=== PATIENT | male | born 1955 | race Caucasian/White ===

== ENCOUNTER 2020-06-21 09:00 | Outpatient (CLI) | payer MEDICARE, SELFPAY | END 2020-06-21 09:01 | disposition home or self-care (01) | PROVIDERS: PCP Internal Medicine | DX: Z23 Encounter for immunization (principal) | CPT/HCPCS: 0001A; 91300 ==

== ENCOUNTER 2020-07-12 08:59 | Outpatient (CLI) | payer MEDICARE, SELFPAY | END 2020-07-12 09:00 | disposition home or self-care (01) | LOC: ANHCOVIDVC 08:59 | PROVIDERS: PCP Internal Medicine | DX: Z23 Encounter for immunization (principal) | CPT/HCPCS: 0002A; 91300 ==

== ENCOUNTER 2021-03-20 16:39 | Observation (INO) | payer MEDICARE, MEDICAID, SELFPAY ==
--- NOTE | ~2021-03-20 | XR_ITS ---
EXAMINATION: XR chest 1V portable DATE: 03/20/2021 17:47 INDICATION: Shortness of breath. TECHNIQUE: A single frontal view of the chest was obtained on 2 radiographs. COMPARISON: Chest 2 views 03/31/2017 FINDINGS: There is no pneumonia, pleural effusion, or pneumothorax. The heart size is normal. IMPRESSION: 1. No acute cardiopulmonary disease. Reviewed, dictated and finalized at location A. [employer]ENDER
--- NOTE | 2021-03-20 17:15 | ED.SOB ---
HPI - SOB/Dyspnea General Chief Complaint: Shortness of Breath/Dyspnea Stated Complaint: covid + passing out, throwing up, fever Time Seen by Provider: 03/20/21 17:15 Source: patient Mode of arrival: wheelchair Limitations: no limitations History of Present Illness HPI Narrative: 66-year-old man with a history Crohn's disease on infliximab the comes in today complaining of vomiting, weakness, lightheadedness, muscle aches, fever and cough. His symptoms started 4 days ago but he developed vomiting and weakness today. He took a home test for COVID yesterday and was positive. MD elicited complaint: shortness of breath Related Data Home Medications Medication Instructions Recorded Confirmed cholestyramine (with sugar) 4 g PO DAILY 03/21/19 03/20/21 [Questran] diphenhydramine-acetaminophen 2 tablet PO HS PRN 03/21/19 03/20/21 [Tylenol PM Extra Strength] diphenoxylate-atropine 2.5 1 tablet PO QID PRN 11/29/20 03/20/21 mg-0.025 mg tablet Allergies Allergy/AdvReac Type Severity Reaction Status Date / Time Sulfa (Sulfonamide Allergy Mild abdomen Verified 11/29/20 09:00 Antibiotics) pain Review of Systems Review of Systems: All systems reviewed & are unremarkable except as noted in HPI and below Constitutional: Constitutional: Reports chills, Reports fever(s) and Reports weakness ENT: Reports nasal congestion and Denies sore throat Cardiovascular: Cardiovascular: Denies chest pain and Denies radiating jaw, neck or arm pain Respiratory: Respiratory: Reports cough and Reports dyspnea Gastrointestinal: Gastrointestinal: Reports diarrhea, Reports nausea and Reports vomiting Musculoskeletal: Musculoskeletal: Reports back pain, Reports myalgias, Denies arthralgias and Denies joint swelling Integumentary/Breasts: Skin/Breast: Denies pruritus, Denies erythema and Denies rash Neurologic: Denies vertigo, Reports dizziness, Denies syncope, Reports headache(s), Denies focal weakness and Reports weakness Hematologic/Lymphatic: Hematologic/Lymphatic: Denies easy bleeding and Denies easy bruising Allergic/Immunologic: Allergic/Immunologic: Denies lip swelling and Denies throat swelling PMFSH Past Medical History Medical History (Updated 03/20/21 @ 19:45 by Fam Holm MD) Arthritis Bulging disc Chronic diarrhea Crohn disease DDD (degenerative disc disease) Herniated disc Sacroiliac joint disease Surgical History Surgical History History of bowel resection Family History Family History Mother Family history of lung cancer Patient's mother is Father Patient's father is Heart failure Diabetes mellitus Malignant neoplasm of prostate Sibling Patient's sister is Ovarian cancer Social History Social History Smoking status: Never smoker Second hand tobacco smoke exposure: No Alcohol intake: current Drinks per week: 6 Substance use: current Substance use type: painkillers Gender identity (if verbalized by the patient): Male Spiritual care concerns: No Agree to blood products: Yes Course Vital Signs Vital signs: Vital Signs Temperature 37.0 C 03/20/21 17:34 Pulse Rate 68 03/20/21 17:34 Respiratory Rate 16 03/20/21 17:34 Blood Pressure 143/80 H 03/20/21 17:34 Pulse Oximetry 100 03/20/21 17:34 Temperature 37.0 C 03/20/21 17:34 Pulse Rate 66 03/20/21 18:24 Respiratory Rate 16 03/20/21 18:24 Blood Pressure 148/60 H 03/20/21 18:24 Pulse Oximetry 100 03/20/21 18:24 MDM - SOB/Dyspnea Lab Data Result diagrams: 03/20/21 17:58 03/20/21 17:58 Labs: Lab Results 03/20/21 03/20/21 03/20/21 Range/Units 17:20 17:58 17:58 WBC 2.4 L (4.8-10.8) K/mm3 RBC 4.96 (4.70-6.10) M
--- NOTE | 2021-03-20 17:17 | ECG_ITS ---
Measurements Intervals [place] Rate: 67 P: 16 NC: 142 QRS: 32 QRSD: 107 T: 52 QT: 437 QTc: 465 Interpretive Statements SINUS RHYTHM BASELINE ARTIFACT- III, AVF NORMAL ECG Electronically Signed On 03-20-2021 20:20:01 [employer] by Alexis Urias D.O.
[2021-03-20] MEDS: ONDANSETRON INJ 4 MG/2 ML VIAL IV PUSH ×2 (17:28→20:58)
[2021-03-20] MEDS: SODIUM CHLORIDE 0.9% IV 1,000 ML 999 ML IV CONT (17:28)
[2021-03-20 17:34] VITALS: BP 143/80; PULSE 68; RESP 16; TEMP 37; O2SAT 100
[2021-03-20 17:50] VITALS: PULSE 68
[2021-03-20 18:00] LABS: Influenza A QL RT-PCR Negative (Negative); Influenza B QL RT-PCR Negative (Negative); SARS-CoV-2 RNA PCR Positive (Negative)
[2021-03-20 18:02] LABS: Hematocrit 44.2 % (37.0-46.0); Hemoglobin 14.6 g/dL (12.4-15.3); Mean Corpuscular Hemoglobin 29.4 pg (27.0-31.0); Mean Corpuscular Volume 89.1 fL (78.0-102.0); Mean Platelet Volume 10.3 fl (8.7-11.0); Platelet Count Result 175 K/mm3 (150-420); Red Blood Count 4.96 M/mm3 (4.70-6.10); Red Cell Distribution Width 13.4 % (11.6-14.4); White Blood Count 2.4 K/mm3 (4.8-10.8)
[2021-03-20 18:19] LABS: Partial Thromboplastin Time 29.1 SEC (23.90-30.70); Prothrombin Time 10.9 Seconds (9.50-12.10)
[2021-03-20 18:24] VITALS: BP 148/60; PULSE 66; RESP 16; O2SAT 100
[2021-03-20 18:24] LABS: Alanine Aminotransferase 251 U/L (16-63); Albumin Level 3.5 g/dL (3.4-5.0); Alkaline Phosphatase 245 U/L (46-116); Anion Gap 9 mmol/L (8-16); Aspartate Amino Transferase 145 U/L (15-37); Bilirubin,Total 0.7 mg/dL (0.00-1.00); Blood Urea Nitrogen 13 mg/dL (7-18); Calcium 7.9 mg/dL (8.5-10.1); Carbon Dioxide 27 mmol/L (21-32); Chloride 96 mmol/L (98-108); Estimated CRCL calculation 62 ml/min; Estimated Glomerular Filt Rate > 60; Glucose 133 mg/dL (70-99); Lactic Acid Reflex 2.1 mmol/L (0.4-2.0); Osmolality Calculated 276 mOsm/kg (285-295); Potassium 3.5 mmol/L (3.5-5.1); Sodium 132 mmol/L (136-145); Total Protein 7.4 g/dL (6.4-8.2); Troponin I 4.5 ng/L (0.00-60.4)
[2021-03-20 18:26] LABS: CRP < 0.2 mg/dL (0.0-0.9)
[2021-03-20 18:44] LABS: Band Neutrophils Percent 0 % (0-6); Basophils Percent Manual 0 % (0-1); Eosinophils Percent Manual 0 % (1-6); Lymphocytes Absolute Manual 0.69 K/mm3 (1.1-4.5); Lymphocytes Percent Manual 29 % (18-44); Monocytes Absolute Manual 0.28 K/mm3 (0.1-0.90); Monocytes Percent Manual 12 % (3-9); Neutrophils Absolute Manual 1.41 K/mm3 (1.3-6.7); Neutrophils Percent Manual 59 % (46-73); Platelet Estimate Adequate (Adequate)
[2021-03-20] MEDS: ACETAMINOPHEN 500 MG TABLET 1000 MG PO (19:30)
[2021-03-20] MEDS: SODIUM CHLORIDE 0.9% IV 1,000 ML 200 ML IV CONT (20:59)
[2021-03-20 22:33] LABS: Add Urine Microscopic? YES; Appearance Urine Clear (Clear); Bilirubin Urine Negative (Negative); Blood Urine Negative (Negative); Color Urine Yellow (Yellow); Glucose Urine UA Negative (Negative); Ketones Urine 2+ (Negative); Leukocyte Esterase Ur Negative LEU/UL (Negative); Nitrate Urine Negative (Negative); Protein Urine Trace (Negative); Specific Grav Ur 1.025 (1.010-1.020)
[2021-03-20 22:39] LABS: RBC Urine 0-2 /hpf (0-2); WBC Urine 0-3 /hpf (0-3)
[2021-03-20 22:40] LABS: Bacteria Urine None seen /hpf; Mucus Urine Rare /lpf; Squamous Epithelial Cell Urine None seen /hpf (Few)
[2021-03-20 22:49] VITALS: BP 132/85; PULSE 77; RESP 18; O2SAT 97
[2021-03-20 23:15] VITALS: BP 142/68; PULSE 74; RESP 18; TEMP 36.9; O2SAT 100
[2021-03-20 23:23] VITALS: BMI 21.6
--- NOTE | 2021-03-20 23:25 | ADMGEN ---
This patient, Bahman Ceballos, was admitted to 2nd Floor Room 210-2 as 23 hr Obs. for Dx of Covid +, weakness, and intractable nausea/hx of Crohn's. Patient/family oriented to hospital policies and general routines including ID bracelet, bed and alarms, visiting hours, pain management, procedures, bathroom and other care routines, personal items, smoking policy, room service/diet, and visiting hours. Information on how to activate the Rapid Response Team has been discussed. Patient/Family are encouraged to report perceived risks to care and to ask questions if they do not understand what they are told or what they should do. Pt ambulated steadily from ER cot to bed s any assistance, all admission assessment completed, pt is fully A&O x3. Call wells within pt reach.
--- NOTE | 2021-03-20 23:30 | PC.NURSE ---
Pt c/o extreme nausea during assessment and call placed by charge nurse to Dr Holm, order received for Phenergan.
[2021-03-20] MEDS: PROMETHAZINE HCL 25 MG/ML AMPUL IM (23:35)
[2021-03-21 00:19] VITALS: BP 140/71; PULSE 63; RESP 18; TEMP 36.9; O2SAT 99
--- NOTE | 2021-03-21 02:01 | PC.NURSE ---
Pt resting, awakens easily, reports nausea is gone, voices no c/o at this time, RR even and nonlabored. Call wells at pt side.
[2021-03-21 04:00] VITALS: BP 130/80; PULSE 74; RESP 18; TEMP 37.7; O2SAT 98
[2021-03-21] MEDS: HYDROcodone/acetaminophen (*CRX) 5-325 MG TABLET 1 TAB PO (04:10)
--- NOTE | 2021-03-21 04:13 | PC.NURSE ---
Pt up ad merari to BR per self s any difficulty. Pt c/o some body aches, noted low grade temp. of 99.9 Pt given x1 [place] as per order. Call wells within pt reach.
[2021-03-21 05:15] LABS: Hematocrit 42.3 % (37.0-46.0); Hemoglobin 14.2 g/dL (12.4-15.3); Mean Corpuscular HGB Conc 33.6 g/dL (32.0-36.0); Mean Corpuscular Hemoglobin 29.6 pg (27.0-31.0); Mean Corpuscular Volume 88.3 fL (78.0-102.0); Mean Platelet Volume 10.2 fl (8.7-11.0); Platelet Count Result 176 K/mm3 (150-420); Red Blood Count 4.79 M/mm3 (4.70-6.10); Red Cell Distribution Width 13.3 % (11.6-14.4); White Blood Count 3.6 K/mm3 (4.8-10.8)
[2021-03-21 05:33] LABS: Band Neutrophils Percent 0 % (0-6); Basophils Absolute Manual 0.03 K/mm3 (0-0.1); Basophils Percent Manual 1 % (0-1); Eosinophils Percent Manual 0 % (1-6); Lymphocytes Absolute Manual 1.54 K/mm3 (1.1-4.5); Lymphocytes Percent Manual 43 % (18-44); Monocytes Absolute Manual 0.46 K/mm3 (0.1-0.90); Monocytes Percent Manual 13 % (3-9); Neutrophils Absolute Manual 1.54 K/mm3 (1.3-6.7); Neutrophils Percent Manual 43 % (46-73); Platelet Estimate Adequate (Adequate)
[2021-03-21 05:35] LABS: Alanine Aminotransferase 207 U/L (16-63); Albumin Level 3.1 g/dL (3.4-5.0); Alkaline Phosphatase 211 U/L (46-116); Anion Gap 10 mmol/L (8-16); Aspartate Amino Transferase 109 U/L (15-37); Bilirubin,Total 0.5 mg/dL (0.00-1.00); Blood Urea Nitrogen 13 mg/dL (7-18); Calcium 7.7 mg/dL (8.5-10.1); Carbon Dioxide 25 mmol/L (21-32); Chloride 97 mmol/L (98-108); Estimated CRCL calculation 82 ml/min; Estimated Glomerular Filt Rate > 60; Glucose 95 mg/dL (70-99); Lactic Acid Reflex 0.9 mmol/L (0.4-2.0); Osmolality Calculated 274 mOsm/kg (285-295); Potassium 3.7 mmol/L (3.5-5.1); Sodium 132 mmol/L (136-145); Total Protein 6.9 g/dL (6.4-8.2)
--- NOTE | 2021-03-21 06:02 | PC.NURSE ---
Pt sleeping, RR even and nonlabored, NSR on monitor, Spo2 99% RA. Call wells in reach of pt.
[2021-03-21 08:00] VITALS: BP 124/76; PULSE 86; RESP 20; TEMP 36.9; O2SAT 98
--- NOTE | 2021-03-21 09:10 | PM.SD2 ---
Same Day Admit/Disch: HPI History of Present Illness Chief complaint: COVID DEHYDRATION VOMITING NEAR SNYCOPE Narrative: Bahman Ceballos is a 66 year old male that presented to our emergency department with complaints of nausea vomiting body aches, chills, and fatigue. Patient has a past medical history of arthritis bulging disc, chronic diarrhea, chronic disease, DDD, herniated is in a history of bowel resection according to patient he started experiencing body aches and chills with fatigue on Thursday and yesterday he developed nausea with vomiting. Patient notes that he was unable to keep down anything he also has a history of Crohn's disease which cleared up due to his illnesses. Patient did test positive for occult test on Thursday and has also tested positive here at our staff. Vital signs 127/76, 86, 20, 98.5, 95% on room air, WBCs 2.4, hemoglobin 14.6,, hematocrit 44.2, platelets 175, sodium 132, potassium 3.5, BUN 13, creatinine 0.96, glucose 133, lactic acid 2.1, AST 145, ALT 251, troponin 4.5, CRP less than 0.2 UA with trace of protein and ketones chest x-ray unremarkable, sinus rhythm with a heart rate of 67. Patient nausea vomiting has resolved he agrees that he is ready for discharge. He will discharge home with Compazine and use [id number] medication for symptoms he will also receive his monoclonal antibiotics tomorrow at [place]. [facility] Past Medical History Medical History (Updated 03/21/21 @ 11:31 by VIET Dixon) Arthritis Bulging disc Chronic diarrhea Crohn disease DDD (degenerative disc disease) Herniated disc Sacroiliac joint disease Surgical History Surgical History History of bowel resection Family History Family History Mother Family history of lung cancer Patient's mother is Father Patient's father is Heart failure Diabetes mellitus Malignant neoplasm of prostate Sibling Patient's sister is Ovarian cancer Social History Social History Smoking status: Never smoker Second hand tobacco smoke exposure: No Alcohol intake: current Drinks per week: 6 Substance use: current Substance use type: marijuana Last use: 03/20/21 Gender identity (if verbalized by the patient): Male Spiritual care concerns: No Agree to blood products: Yes Same Day Admit/Disch: Med Pre-admit Medications Home Medications Medication Instructions Recorded Confirmed Type cholestyramine (with sugar) 4 g PO DAILY 03/21/19 03/20/21 History [Questran] diphenhydramine-acetaminophen 2 tablet PO HS PRN 03/21/19 03/20/21 History [Tylenol PM Extra Strength] cyclobenzaprine 10 mg PO Q8H PRN #30 tablet 03/24/19 03/20/21 Rx infliximab 100 mg intravenous 816 mg IVPB .q8w #1 each 11/28/19 03/20/21 Rx solution meloxicam 15 mg tablet 15 mg PO DAILY #90 tablet 10/18/20 03/20/21 Rx diazepam 10 mg tablet 10 mg PO DAILY PRN #30 tablet 11/06/20 03/20/21 Rx diphenoxylate-atropine 2.5 1 tablet PO QID PRN 11/29/20 03/20/21 History mg-0.025 mg tablet alprazolam 0.5 mg tablet 0.5 mg PO .hs PRN #30 tablet 12/21/20 03/20/21 Rx hydrocodone 5 mg-acetaminophen 325 1 tablet PO Q12H PRN #30 tablet 01/21/21 03/20/21 Rx mg tablet omeprazole 20 mg capsule,delayed 20 mg PO DAILY #30 cap 03/20/21 03/20/21 Rx release ondansetron HCl [Zofran] 4 mg PO Q8H PRN #30 tablet 03/21/21 Rx prochlorperazine maleate 10 mg PO Q6H PRN #30 tablet 03/21/21 Rx [Compazine] Exam Narrative: GENERAL: This is a well-nourished, well-developed patient, in no apparent distress. HEAD: normocephalic, atraumatic. EYES: PERRL. Sclera clear/white. Vision is grossly intact. EARS: External ears normal, auditory canals clear and without drainage, TMs normal without perforation. Hearing grossly intac
[2021-03-21] MEDS: MELOXICAM 7.5 MG TABLET 15 MG PO (09:12)
[2021-03-21] MEDS: PANTOPRAZOLE 40 MG TABLET PO (09:12)
[2021-03-21] MEDS: CHOLESTYRAMINE (W/ SUGAR) 4 GM POWD.PACK PO (09:12)
[2021-03-21] MEDS: ACETAMINOPHEN 500 MG TABLET 1000 MG PO (09:19)
--- NOTE | 2021-03-26 10:38 | PC.NURSE ---
Unable to contact for discharge call back.
== END 2021-03-21 12:25 | disposition home or self-care (01) ==
LOC: CHSED 19:45 → CHS2ND 21:51
PROVIDERS: Admitting Provider Emergency Medicine; Emergency Provider Emergency Medicine; PCP Family Medicine; Visit Provider Emergency Medicine
DX: U07.1 COVID-19 (principal); K52.9 Noninfective gastroenteritis and colitis, unspecified; K50.90 Crohn's disease, unspecified, without complications; E78.49 Other hyperlipidemia; M25.562 Pain in left knee; M19.90 Unspecified osteoarthritis, unspecified site; M62.830 Muscle spasm of back; R79.89 Other specified abnormal findings of blood chemistry
CPT/HCPCS: 36415; 71045; 80053; 81001; 83605; 84484; 85025; 85610; 85730; 86140; 87040; 87502; 93005; 96361; 96372; 96374; 96376; 99285; A9270; C9803; G0378; J2405; J2550; J7030; U0003; U0005

== ENCOUNTER 2022-06-11 09:19 | Outpatient (CLI) | payer MEDICARE, MEDICAID, SELFPAY ==
[2022-06-11 19:04] LABS: Alanine Aminotransferase 28 U/L (6-50); Albumin Level 4.4 g/dL (3.5-5.1); Alkaline Phosphatase 72 U/L (38-126); Anion Gap 10 mmol/L (8-16); Aspartate Amino Transferase 35 U/L (17-59); Basophils Absolute Auto 0.1 K/mm3 (0.0-0.1); Basophils Percent Auto 1.1 % (0.2-1.2); Bilirubin,Total 0.6 mg/dL (0.2-1.3); Blood Urea Nitrogen 16 mg/dL (9-20); Calcium 8.8 mg/dL (8.4-10.2); Carbon Dioxide 27 mmol/L (22-30); Chloride 101 mmol/L (98-107); Eosinophils Absolute Auto 0.1 K/mm3 (0-0.3); Eosinophils Percent Auto 1.1 % (0-4.4); Estimated Glomerular Filt Rate > 60; Glucose 100 mg/dL (65-110); Hematocrit 42.4 % (42.0-52.0); Hemoglobin 14.4 g/dL (14.0-18.0); Immature Granulocyte Absolute 0.03 K/mm3 (0.00-0.031); Immature Granulocyte Percent A 0.4 % (0-0.5); Lymphocytes Absolute Auto 3.03 K/mm3 (0.9-3.2); Lymphocytes Percent Auto 35.5 % (18.3-44.2); Mean Corpuscular Hemoglobin 32.1 pg (26-34); Mean Corpuscular Volume 94.4 fl (80-100); Mean Platelet Volume 10.3 fl (7.4-10.4); Monocytes Absolute Auto 0.6 K/mm3 (0.1-0.6); Monocytes Percent Auto 7.5 % (2.6-8.5); Neutrophils Absolute Auto 4.7 K/mm3 (1.3-6.7); Neutrophils Percent Auto 54.4 % (45.5-73.1); Platelet Count Result 353 k/mm3 (150-375); Potassium 4.2 mmol/L (3.4-5.0); Red Blood Count 4.49 M/mm3 (4.6-6.20); Red Cell Distribution Width 13.3 % (11.5-14.5); Sodium 138 mmol/L (137-145); White Blood Count 8.5 K/mm3 (4.5-10.0)
[2022-06-11 19:26] LABS: Prostate Specific Antigen 2.3 ng/mL (< OR = 4.0)
== END 2022-06-11 09:20 | disposition home or self-care (01) ==
LOC: ANHGOSHLAB 09:22
PROVIDERS: PCP Family Medicine; Visit Provider Family Medicine
DX: K50.90 Crohn's disease, unspecified, without complications (principal); Z12.5 Encounter for screening for malignant neoplasm of prostate
CPT/HCPCS: 36415; 80053; 82607; 84153; 85025; G0103

== ENCOUNTER 2022-12-16 09:51 | Outpatient (CLI) | payer MEDICARE, MEDICAID, SELFPAY ==
[2022-12-16 15:33] LABS: Kit Draw Collected
== END 2022-12-16 09:52 | disposition home or self-care (01) ==
PROVIDERS: PCP Family Medicine; Visit Provider Family Medicine
DX: M79.89 Other specified soft tissue disorders (principal); M25.432 Effusion, left wrist; M79.642 Pain in left hand; J30.0 Vasomotor rhinitis
CPT/HCPCS: 36415

== ENCOUNTER 2023-08-24 09:13 | Outpatient (CLI) | payer MEDICARE, SELFPAY ==
--- NOTE | ~2023-08-24 | XR_ITS ---
EXAMINATION: XR chest 2V DATE: 08/24/2023 09:26 INDICATION: Immunodeficiency due to drugs. TECHNIQUE: Frontal and lateral views of the chest were obtained. COMPARISON: Chest single view 03/20/2021 FINDINGS: There is no pneumonia, pleural effusion, or pneumothorax. The heart size is normal. IMPRESSION: 1. No acute cardiopulmonary disease. Reviewed, dictated and finalized at location A.
== END 2023-08-24 09:14 ==
LOC: GOSHIMG 09:14
PROVIDERS: PCP Family Medicine; Visit Provider Family Medicine
DX: D84.821 Immunodeficiency due to drugs (principal)
CPT/HCPCS: 71046

== ENCOUNTER 2023-12-02 12:46 | Outpatient (CLI) | payer MEDICARE, SELFPAY ==
--- NOTE | ~2023-12-02 | CT_ITS ---
EXAMINATION: CT soft tissue neck w con DATE: 12/02/2023 13:30 INDICATION: Diplopia. Headache and dizziness. TECHNIQUE: Computed tomography (CT) of the neck was performed with 75 mL Omnipaque-350 intravenous co ntrast. Automated exposure control and iterative reconstruction technique were employed. The dose-jason gth product was 427.33 mGy-cm. COMPARISON: None FINDINGS: There is mild scarring at the lung apices. There are no pathologically enlarged lymph nodes . There is mild plaque in the proximal internal carotid arteries is 0% stenosis relative to normal di stal artery lumen diameters. There is severe cervical spondylosis. There is mild mucosal thickening i n the ethmoid sinuses. The mastoid air cells are normal. IMPRESSION: 1. No specific etiology for the patient's symptoms. Reviewed, dictated and finalized at location A.
[2023-12-02 13:17] LABS: Estimated Glomerular Filt Rate > 60
== END 2023-12-02 12:47 ==
LOC: MICIMG 12:46
PROVIDERS: PCP Family Medicine; Visit Provider Family Medicine
DX: M54.2 Cervicalgia (principal); H53.2 Diplopia
CPT/HCPCS: 70491; Q9967

== ENCOUNTER 2023-12-23 10:52 | Outpatient (CLI) | payer MEDICARE, SELFPAY ==
[2023-12-23 11:15] LABS: Basophils Absolute Auto 0.1 K/mm3 (0.0-0.1); Basophils Percent Auto 0.8 % (0.2-1.2); Eosinophils Percent Auto 0.4 % (0-4.4); Hematocrit 44.7 % (42.0-52.0); Hemoglobin 14.5 g/dL (14.0-18.0); Immature Granulocyte Percent A 0.9 % (0-0.5); Lymphocytes Absolute Auto 3.16 K/mm3 (0.9-3.2); Lymphocytes Percent Auto 29.9 % (18.3-44.2); Mean Corpuscular HGB Conc 32.4 g/dl (32-36); Mean Corpuscular Hemoglobin 30.3 pg (26-34); Mean Corpuscular Volume 93.5 fl (80-100); Mean Platelet Volume 9.5 fl (7.4-10.4); Monocytes Absolute Auto 0.8 K/mm3 (0.1-0.6); Monocytes Percent Auto 7.6 % (2.6-8.5); Neutrophils Absolute Auto 6.4 K/mm3 (1.3-6.7); Neutrophils Percent Auto 60.4 % (45.5-73.1); Platelet Count Result 298 k/mm3 (150-375); Red Blood Count 4.78 M/mm3 (4.6-6.20); Red Cell Distribution Width 13.8 % (11.5-14.5); White Blood Count 10.6 K/mm3 (4.5-10.0)
[2023-12-23 11:29] LABS: Alanine Aminotransferase 35 U/L (6-50); Albumin Level 4.4 g/dL (3.5-5.1); Alkaline Phosphatase 68 U/L (38-126); Anion Gap 9 mmol/L (4-12); Aspartate Amino Transferase 30 U/L (17-59); Bilirubin,Total 0.7 mg/dL (0.2-1.3); Blood Urea Nitrogen 20 mg/dL (9-20); CRP < 0.5 mg/dL (<1.0); Calcium 9.2 mg/dL (8.4-10.2); Carbon Dioxide 29 mmol/L (22-30); Chloride 96 mmol/L (98-107); Estimated Glomerular Filt Rate > 60; Glucose 107 mg/dL (65-110); Potassium 3.9 mmol/L (3.4-5.0); Sodium 134 mmol/L (137-145)
[2023-12-23 11:53] LABS: Erythrocyte Sedimentation Rate 5 mm/hr (0-20)
[2023-12-23 12:22] LABS: Hemoglobin A1C 5.5 % (<5.7)
== END 2023-12-23 10:53 | disposition home or self-care (01) ==
LOC: ANHLAB 10:59
PROVIDERS: PCP Family Medicine; Visit Provider Family Medicine
DX: R79.89 Other specified abnormal findings of blood chemistry (principal); H49.10 Fourth [trochlear] nerve palsy, unspecified eye
CPT/HCPCS: 36415; 80053; 83036; 85025; 85652; 86140

== ENCOUNTER 2024-02-04 09:57 | Outpatient (CLI) | payer MEDICARE, SELFPAY ==
--- NOTE | ~2024-02-04 | MR_ITS ---
EXAMINATION: MR brain/brain stem wo/w con DATE: 02/04/2024 11:07 INDICATION: Asymmetrical sensorineural hearing loss. TECHNIQUE: Magnetic resonance imaging (MRI) of the brain, brainstem, and internal auditory canals was performed without and with 17 mL MultiHance intravenous contrast. COMPARISON: None. FINDINGS: There are scattered areas of nonspecific increased T2-weighted signal intensity in the cere bral white matter, which is within normal limits for the patient's age. There is no intracranial hemo rrhage, acute infarction, or abnormal intracranial mass lesion. The ventricles are normal in size. Th ere is mild mucosal thickening in the paranasal sinuses. The orbits are normal. The mastoid air cells are normal. The internal auditory canals, inner ears, and tympanic cavities are normal. IMPRESSION: 1. Normal aging brain. Reviewed, dictated and finalized at location A. IMPRESSION: 1. Normal aging brain.
== END 2024-02-04 09:58 | disposition home or self-care (01) ==
PROVIDERS: PCP Family Medicine; Visit Provider Otolaryngology
DX: H90.3 Sensorineural hearing loss, bilateral (principal)
CPT/HCPCS: 70553; A9577